=== PATIENT | male | born 1975 | race African-American/Black ===

== ENCOUNTER 2016-05-02 16:24 | Emergency (ER) | payer MEDICAID ==
[2016-05-02 17:01] VITALS: BP 121/74
--- NOTE | 2016-05-02 18:23 | ER Document Report ---
ED Medical Screen (RME) - General Stated Complaint: BODY ACHES/SORE THROAT Mode of Arrival: Ambulatory Information source: Patient Notes: 40-year-old male presents to the emergency department complaining of sore throat , body aches, and right ear pain over the last 3 days. Reports thinks symptoms may have started after he was bit by a mosquito on the left hand. Denies hand swelling, pain, or redness. I have greeted and performed a rapid initial assessment of this patient. A comprehensive ED assessment and evaluation of the patient, analysis of test results and completion of the medical decision making process will be conducted by additional ED providers. TRAVEL OUTSIDE OF THE [place] IN LAST 30 DAYS: No - Related Data Allergies/Adverse Reactions: No Known Allergies Allergy (Unverified 05/02/16 17:24) Past Medical History - Social History Chew tobacco use (# tins/day): No Frequency of alcohol use: None Drug Abuse: None Renal/ Medical History: Denies: Hx Peritoneal Dialysis Physical Exam - Vital signs Vitals: Temp Pulse Resp BP Pulse Ox 99.5 F 91 16 121/74 95 05/02/16 17:00 05/02/16 17:00 05/02/16 17:00 05/02/16 17:00 05/02/16 17:00 - General General appearance: Appears well, Alert In distress: None - Respiratory Respiratory status: No respiratory distress Course - Vital Signs Vital signs: Temp Pulse Resp BP Pulse Ox 99.5 F 91 16 121/74 95 05/02/16 17:00 05/02/16 17:00 05/02/16 17:00 05/02/16 17:00 05/02/16 17:00
[2016-05-02] MEDS ORDERED: OXYCODONE-ACETAMINOPHEN 5-325 MG TABLET PO ONE (18:36)
--- NOTE | 2016-05-02 18:37 | ER Document Report ---
HPI - HPI Patient complains to provider of: cold symptoms Onset: Other - 3 days Onset/Duration: Persistent Quality of pain: Achy Pain Level: 4 Context: Patient complains of sore throat, right ear pain, headache, body aches and chills for the past 3 days. Reports subjective fever at home. Associated Symptoms: Body/muscle aches, Earache, Fever - Subjective, Sore throat Exacerbated by: Denies Relieved by: Denies Similar symptoms previously: No Recently seen / treated by doctor: No - ROS ROS below otherwise negative: Yes Systems Reviewed and Negative: Yes All other systems reviewed and negative - CONSTITUTIONAL Constitutional: REPORTS: Fever, Chills - EENT EENT: REPORTS: Sore Throat, Congestion - NEURO Neurology: REPORTS: Headache - GASTROINTESTINAL Gastrointestinal: DENIES: Nausea, Patient vomiting, Diarrhea - MUSCULOSKELETAL Musculoskeletal: REPORTS: Extremity pain - Generalized body aches - DERM Skin Color: Normal Skin Problems: None Past Medical History - General Information source: Patient - Social History Smoking Status: Never Smoker Chew tobacco use (# tins/day): No Frequency of alcohol use: None Drug Abuse: None Occupation: none Lives with: Spouse/Significant other Family History: Reviewed & Not Pertinent Patient has suicidal ideation: No Patient has homicidal ideation: No - Medical History Medical History: Negative Renal/ Medical History: Denies: Hx Peritoneal Dialysis Surgical Hx: Negative Vertical Provider Document - CONSTITUTIONAL Agree With Documented VS: Yes Exam Limitations: No Limitations General Appearance: WD/WN, No Apparent Distress - INFECTION CONTROL TRAVEL OUTSIDE OF THE [place] IN LAST 30 DAYS: No - HEENT HEENT: Atraumatic, Normocephalic, Pharyngeal Tenderness, Pharyngeal Erythema. negative: Pharyngeal Exudate - NECK Neck: Normal Inspection, Supple. negative: Lymphadenopathy-Left, Lymphadenopathy-Right - RESPIRATORY Respiratory: Breath Sounds Normal, No Respiratory Distress, Chest Non-Tender O2 Sat by Pulse Oximetry: 95 - CARDIOVASCULAR Cardiovascular: Regular Rate, Regular Rhythm, No Murmur - BACK Back: Normal Inspection. negative: CVA Tenderness-Right, CVA Tenderness-Left - MUSCULOSKELETAL/EXTREMETIES Musculoskeletal/Extremeties: MAEW, FROM - NEURO Level of Consciousness: Awake, Alert, Appropriate Motor/Sensory: No Motor Deficit, No Sensory Deficit - DERM Integumentary: Warm, Dry, No Rash Course - Vital Signs Vital signs: Temp Pulse Resp BP Pulse Ox 99.5 F 91 16 121/74 95 05/02/16 17:00 05/02/16 17:00 05/02/16 17:00 05/02/16 17:00 05/02/16 17:00 - Laboratory Laboratory results interpreted by me: 05/02/16 19:59 Labs- Entire Visit 05/02/16 05/02/16 19:01 19:01 Influenza A (Rapid) NEGATIVE Influenza B (Rapid) POSITIVE Group A Strep Rapid NEGATIVE 05/02/16 21:05 Discharge - Discharge Clinical Impression: Influenza Condition: Stable Disposition: HOME, SELF-CARE Instructions: Influenza ([facility]), Oral Narcotic Medication ([facility]), Sore Throat ([facility] ) Additional Instructions: Return immediately for any new or worsening symptoms Followup with your primary care provider, call tomorrow to make a followup appointment Prescriptions: Hydrocodone/Acetaminophen [[place] 5-325 Tablet] 1 each PO Q4 PRN #15 tablet PRN Reason: Forms: Return to School
== END 2016-05-02 20:20 | disposition home or self-care (01) ==
LOC: ER 16:24
DX: J11.1 Influenza due to unidentified influenza virus with other respiratory manifestations (principal); H92.01 Otalgia, right ear; R51 Headache; R68.83 Chills (without fever); M79.1 Myalgia
CPT/HCPCS: 87070; 87804; 87880; 99283

== ENCOUNTER 2017-05-27 07:40 | Emergency (ER) | payer MEDICAID ==
[2017-05-27] MEDS ORDERED: ACETAMINOPHEN 325 MG TABLET PO ONE (07:53)
--- NOTE | 2017-05-27 09:21 | ER Document Report ---
HPI - HPI Patient complains to provider of: Sore throat Pain Level: 5 Context: Patient is a 41-year-old male who presents the emergency department the chief complaint of sore throat, headache, fevers and body aches that started this morning prior to arrival. Patient states that he did have a sick contact in his son who is being examined today for the same. Denies any runny nose, cough , difficulty breathing, shortness of breath chest pain nausea or vomiting. Did not take anything prior to arrival for symptoms. - CONSTITUTIONAL Constitutional: REPORTS: Fever, Chills - EENT EENT: REPORTS: Sore Throat Past Medical History - Social History Smoking Status: Never Smoker Frequency of alcohol use: None Drug Abuse: None Family History: Reviewed & Not Pertinent Patient has suicidal ideation: No Patient has homicidal ideation: No Renal/ Medical History: Denies: Hx Peritoneal Dialysis Past Surgical History: Reports: Hx Oral Surgery Vertical Provider Document - CONSTITUTIONAL Agree With Documented VS: Yes Notes: PHYSICAL EXAM GENERAL: Alert, interacts well. HEAD: Normocephalic, atraumatic. EYES: Pupils equal, round, and reactive to light. Extraocular movements intact. ENT: Tympanic membrane intact without any evidence of bulging, effusion. Oral mucosa moist, tongue midline. No evidence of peritonsillar, retropharyngeal abscess. Tonsillar exudates with anterior lymphadenopathy. Otherwise airway patent. NECK: Full range of motion. Supple. Trachea midline. LUNGS: Clear to auscultation bilaterally, no wheezes, rales, or rhonchi. No respiratory distress. HEART: Regular rate and rhythm. No murmurs, gallops, or rubs. ABDOMEN: Soft, nondistended, nontender. No guarding, rebound, or rigidity.. Bowel sounds present in all 4 quadrants. EXTREMITIES: Moves all 4 extremities spontaneously. No edema, radial and dorsalis pedis pulses 2/4 bilaterally. No cyanosis. NEUROLOGICAL: Alert and oriented x4. Normal speech. PSYCH: Normal affect, normal mood. SKIN: Warm, dry, normal turgor. No rashes or lesions noted. - INFECTION CONTROL TRAVEL OUTSIDE OF THE [place] IN LAST 30 DAYS: No - RESPIRATORY O2 Sat by Pulse Oximetry: 96 Course - Re-evaluation Re-evalutation: 05/27/17 10:20 Presentation of one day of sore throat with positive sick contact in an otherwise well-appearing patient. Rapid strep is positive. History and exam are not consistent with a retropharyngeal abscess or peritonsillar abscess. Airway is patent. No difficulty handling oral secretions. Vitals within normal limits. Patient has been treated with an IM dose of penicillin and decadron. At this time will discharge with return precautions and follow-up recommendations. Verbal discharge instructions given a the bedside and opportunity for questions given. Medication warnings reviewed. Patient is in agreement with this plan and has verbalized understanding of return /18 Precautions and the need for primary care follow-up in the next week. - Vital Signs Vital signs: Temp Pulse Resp BP Pulse Ox 101.7 F H 103 H 24 H 116/78 96 05/27/17 07:51 05/27/17 07:51 05/27/17 07:51 05/27/17 07:51 05/27/17 07:51 Discharge - Discharge Clinical Impression: Strep pharyngitis Condition: Good Disposition: HOME, SELF-CARE Instructions: Acetaminophen Additional Instructions: You have been diagnosed with strep throat based on a positive strep test. You have been treated with a dose of penicillin here in the emergency department and do not need any additional antibiotics. You have also been given a dose of steroids to help with your throat discomfort. Please continue to take ibuprofen 600 mg every 6 hours or Tylenol 1000 mg every 6 hours as needed for throat discomfort. You can also gargle with salt water. Continue to drink plenty of fluids. Follow-up with your primary care doctor in the next several days. Return if you become unable to swallow, have difficulty breathing, pass out, have persistent vomiting that prevents you from being able to tolerate fluids, or have any other symptoms that are concerning to you.
[2017-05-27] MEDS ORDERED: PENICILLIN G BENZATHINE 1.2 MILLION UNIT/2 ML DISP.SYRIN IM ONE (10:20)
[2017-05-27] MEDS ORDERED: DEXAMETHASONE SOD PHOS INJ 10 MG/1 ML VIAL IM ONE (10:20)
[2017-05-27 10:39] VITALS: BP 115/67
== END 2017-05-27 10:46 | disposition home or self-care (01) ==
LOC: ER 07:40
DX: J02.0 Streptococcal pharyngitis (principal); R51 Headache; R50.9 Fever, unspecified; M79.1 Myalgia
CPT/HCPCS: 99283; 96372; 87880; J3490; J0561; J1100

== ENCOUNTER 2018-04-14 11:31 | Emergency (ER) | payer MEDICAID ==
--- NOTE | 2018-04-14 12:28 | ER Document Report ---
ED Extremity Problem, Lower - General Chief Complaint: Foot Pain Stated Complaint: LEFT FOOT PAIN, SWELLING Time Seen by Provider: 04/14/18 12:16 Notes: 42-year-old male presents to the emergency department complaining of left foot pain. States he was running and stepped on 1 of the weight benches legs. Complains of pain on the side of his foot. He denies falling or hitting his head or have any loss of consciousness. States he did this earlier today describes pain as moderate aching worse when he bears weight. He denies any bleeding or open wounds. Denies any extremity numbness tingling or weakness. Denies any chest pain or shortness of breath again there is no loss of consciousness no fall no syncope. TRAVEL OUTSIDE OF THE [place] IN LAST 30 DAYS: No - Related Data Allergies/Adverse Reactions: No Known Allergies Allergy (Verified 04/14/18 11:57) Past Medical History - Social History Smoking Status: Never Smoker Chew tobacco use (# tins/day): No Frequency of alcohol use: None Drug Abuse: None Family History: Reviewed & Not Pertinent Patient has suicidal ideation: No Patient has homicidal ideation: No Renal/ Medical History: Denies: Hx Peritoneal Dialysis Past Surgical History: Reports: Hx Oral Surgery Review of Systems - Review of Systems Constitutional: denies: Chills, Fever Cardiovascular: denies: Chest pain Musculoskeletal: Joint pain. denies: Deformity Neurological/Psychological: denies: Lost consciousness, Headaches -: Yes All other systems reviewed and negative Physical Exam - Vital signs Vitals: Temp Pulse Resp BP Pulse Ox 99.2 F 79 16 117/78 96 04/14/18 11:38 04/14/18 11:38 04/14/18 11:38 04/14/18 11:38 04/14/18 11:38 - Notes Notes: GENERAL_APPEARANCE: well_nourished, alert, cooperative VITALS: reviewed, see vital signs table. HEAD: no_swelling\tenderness on the head. EYES: PERRL, EOMI, conjunctiva_clear. NOSE: no_nasal_discharge. MOUTH: (-)decreased moisture. NECK: supple, no_neck_tenderness, (-)thyromegaly. BACK: no_back_tenderness. EXTREMITIES: Left foot there is some tenderness on the lateral surface near the base of the fifth metatarsal. No obvious open wounds no deformity SKIN: warm, dry, good_color, no_rash. MENTAL_STATUS: speech_clear, oriented_X_3, normal_affect, responds_appropriately to questions. Course - Re-evaluation Re-evalutation: 04/14/18 12:28 42-year-old male presents to the ER after injuring his foot. I see no obvious fractures on x-ray. Patient was placed in a cast shoe and crutches. He will be placed on diclofenac for pain and inflammation I spoke with him about occult fractures and following up with Orth [facility] in a week. 04/14/18 13:02 No fractures are noted - Vital Signs Vital signs: Temp Pulse Resp BP Pulse Ox 99.2 F 79 16 117/78 96 04/14/18 11:38 04/14/18 11:38 04/14/18 11:38 04/14/18 11:38 04/14/18 11:38 - Diagnostic Test Radiology reviewed: Reports reviewed Radiology results interpreted by me: 04/14/18 13:02 Foot X-Ray 04/14/18 11:57 IMPRESSION: NEGATIVE STUDY OF THE LEFT FOOT. NO RADIOGRAPHIC EVIDENCE OF ACUTE INJURY. Discharge - Discharge Clinical Impression: Foot contusion Qualifiers: Encounter type: initial encounter Laterality: left Qualified Code(s): S90.32XA - Contusion of left foot, initial encounter Condition: Good Disposition: HOME, SELF-CARE Instructions: Contusion ([facility]) Prescriptions: Diclofenac Sodium [Voltaren] 75 mg PO BID PRN #20 tablet.dr MOSS Reason: Pain Scale Of 5
--- NOTE | 2018-04-14 12:49 | RADIOLOGY REPORT (SQ) ---
EXAM DESCRIPTION: FOOT LEFT COMPLETE COMPLETED DATE/TIME: 04/14/2018 12:40 pm REASON FOR STUDY: fall COMPARISON: None. NUMBER OF VIEWS: Three views. TECHNIQUE: AP, lateral and oblique radiographic images acquired of the left foot. LIMITATIONS: None. FINDINGS: MINERALIZATION: Normal. BONES: No acute fracture or dislocation. No worrisome bone lesions. JOINTS: No effusions. SOFT TISSUES: No soft tissue swelling. No foreign body. OTHER: No other significant finding. IMPRESSION: NEGATIVE STUDY OF THE LEFT FOOT. NO RADIOGRAPHIC EVIDENCE OF ACUTE INJURY. TECHNICAL DOCUMENTATION: JOB ID: [id number] [employer]- All Rights Reserved Reading location - IP/workstation name: [email or web address]
[2018-04-14 13:25] VITALS: BP 116/79
== END 2018-04-14 13:26 | disposition home or self-care (01) ==
LOC: ER 11:31
DX: S90.32XA Contusion of left foot, initial encounter (principal); W21.89XA Striking against or struck by other sports equipment, initial encounter; Y93.02 Activity, running
CPT/HCPCS: 99283

== ENCOUNTER 2020-02-13 10:49 | Emergency (ER) | payer SELFPAY ==
--- NOTE | 2020-02-13 11:29 | ER Document Report ---
ED Medical Screen (RME) - General Chief Complaint: Chest Pain Stated Complaint: CHEST PAIN Time Seen by Provider: 02/13/20 11:25 Mode of Arrival: Ambulatory Information source: Patient Notes: Patient presents complaining of chest pain to the left side of the chest that radiates to the left upper extremity for the past 5 days. Patient also complains of bilateral lower extremity swelling for the past 7 months. Patient complains of right sided abdominal discomfort for the past 6 months. Patient denies any chronic medical problems or previous surgeries. I have greeted and performed a rapid initial assessment of this patient. A comprehensive ED assessment and evaluation of the patient, analysis of test results and completion of the medical decision making process will be conducted by additional ED providers. TRAVEL OUTSIDE OF THE [place] IN LAST 30 DAYS: No - Related Data Allergies/Adverse Reactions: No Known Allergies Allergy (Verified 04/14/18 11:57) Past Medical History - Social History Frequency of alcohol use: Occasional Drug Abuse: Marijuana Renal/ Medical History: Denies: Hx Peritoneal Dialysis Past Surgical History: Reports: Hx Oral Surgery Physical Exam - Vital signs Vitals: Temp Pulse Resp BP Pulse Ox 98.9 F 80 16 139/79 H 99 02/13/20 10:57 02/13/20 10:57 02/13/20 10:57 02/13/20 10:57 02/13/20 10:57 - Respiratory Respiratory status: No respiratory distress Chest status: Tender - Upper anterior chest wall Breath sounds: Normal Chest palpation: Tender Course - Vital Signs Vital signs: Temp Pulse Resp BP Pulse Ox 98.9 F 80 16 139/79 H 99 02/13/20 10:57 02/13/20 10:57 02/13/20 10:57 02/13/20 10:57 02/13/20 10:57
[2020-02-13 11:52] LABS: ABSOLUTE MONOCYTES (AUTO) 0.5 10^3/uL (0.1-1.4); ABSOLUTE NEUT (AUTO) 1.7 10^3/uL (1.7-8.2); BASOPHILS % (AUTO) 0.7 % (0-2); EOSINOPHILS % (AUTO) 0.5 % (0-6); HEMATOCRIT 46.6 % (37.9-51.0); LYMPHOCYTES % (AUTO) 30.6 % (13-45); MEAN CORPUSCULAR HEMOGLOBIN 30.6 pg (27.0-33.4); MEAN CORPUSCULAR HGB CONC 34.4 g/dL (32.0-36.0); MEAN CORPUSCULAR VOLUME 89 fl (80-97); MONOCYTES % (AUTO) 16.2 % (3-13); PLATELET COUNT 155 10^3/uL (150-450); RED BLOOD COUNT 5.24 10^6/uL (4.35-5.55); RED CELL DISTRIBUTION WIDTH 13.6 % (11.5-14.0); TOTAL CELLS COUNTED % (AUTO) 100 %; WHITE BLOOD COUNT 3.3 10^3/uL (4.0-10.5)
[2020-02-13 12:04] LABS: APPEARANCE,URINE CLEAR; BILIRUBIN,URINE NEGATIVE (NEGATIVE); COLOR,URINE YELLOW; GLUCOSE, URINE NEGATIVE (NEGATIVE); KETONES,URINE TRACE mg/dL (NEGATIVE); LEUKOCYTE ESTERASE,URINE TRACE (NEGATIVE); NITRITE,URINE NEGATIVE (NEGATIVE); PROTEIN,URINE NEGATIVE (NEGATIVE); URINE SPECIFIC GRAVITY 1.028
[2020-02-13 12:06] LABS: ALBUMIN 4.7 g/dL (3.5-5.0); ALKALINE PHOSPHATASE 74 U/L (38-126); ANION GAP 7 (5-19); ASPARTATE AMINO TRANSFERASE 56 U/L (17-59); BILIRUBIN,TOTAL 0.8 mg/dL (0.2-1.3); BLOOD UREA NITROGEN 11 mg/dL (7-20); CALCIUM 9.8 mg/dL (8.4-10.2); CARBON DIOXIDE 31 mmol/L (22-30); CHLORIDE 101 mmol/L (98-107); GLUCOSE 119 mg/dL (75-110); POTASSIUM 4.2 mmol/L (3.6-5.0); TOTAL PROTEIN 8.6 g/dL (6.3-8.2)
--- NOTE | 2020-02-13 12:08 | RADIOLOGY REPORT (SQ) ---
EXAM DESCRIPTION: ACUTE ABDOMEN SERIES IMAGES COMPLETED DATE/TIME: 02/13/2020 11:51 am REASON FOR STUDY: cp, r side abd pain COMPARISON: None. NUMBER OF VIEWS: Three views. TECHNIQUE: Frontal chest, supine abdomen and upright/decubitus abdomen radiographic images acquired. LIMITATIONS: None. FINDINGS: CHEST: Lungs clear of infiltrates. FREE AIR: None. No abnormal gas collections. BOWEL GAS PATTERN: Nonobstructive pattern. No dilated loops or air fluid levels. CALCIFICATIONS: No suspicious calcifications. HARDWARE: None in the abdomen. SOFT TISSUES: No gross mass or suggestion of organomegaly. BONES: No acute fracture. No worrisome bone lesions. OTHER: No other significant finding. IMPRESSION: NO RADIOGRAPHIC EVIDENCE FOR ACUTE ABDOMINAL DISEASE. TECHNICAL DOCUMENTATION: JOB ID: [id number] [employer]- All Rights Reserved Reading location - IP/workstation name: [email or web address]
--- NOTE | 2020-02-13 14:06 | EKG REPORT ---
SEVERITY:- NORMAL ECG - SINUS RHYTHM : Confirmed by: Bhupendra Ambrocio MD 13-Feb-2020 14:06:04
--- NOTE | 2020-02-13 15:41 | ER Document Report ---
ED General - General Chief Complaint: Chest Pain Stated Complaint: CHEST PAIN Time Seen by Provider: 02/13/20 11:25 Mode of Arrival: Ambulatory TRAVEL OUTSIDE OF THE [place] IN LAST 30 DAYS: No - HPI Notes: Patient is a 44-year-old male who presents emergency department for evaluation of left-sided chest pain for the last 5 to 6 days, right-sided abdominal pain for 6 months, lower extremity edema and paresthesias of the anterior legs for 7 months. Patient states he cannot remember exactly what happened with his chest pain. It started in the left side. It is been constant for the last several days. Is worsened with movement. He denies any associated nausea, shortness of breath, diaphoresis, near syncope. He states he has had intermittent edema in his lower extremities for the last several months. He states that it seems to be a little bit better today, but on occasion to get some pressure with it. He denies any sharp pain. He has no prolonged immobilization. No history of DVT or PE. No recent surgeries. No family history of DVT or PE. No personal history of cancer. Patient also states has had right upper quadrant abdominal pain every day for the last several months. He denies any fevers or chills. No nausea or vomiting in regards to this. Does not seem to be affected in any way by food. He is having normal bowel movements. Normal urination. Patient also states he has some lower back pain, and paresthesias in the front of his legs. It seems to get on his entire legs. Ask intermittently. He really cannot give me any aggravating or alleviating factors. - Related Data Allergies/Adverse Reactions: No Known Allergies Allergy (Verified 04/14/18 11:57) Past Medical History - General Information source: Patient - Social History Smoking Status: Former Smoker Frequency of alcohol use: Occasional Drug Abuse: Marijuana Family History: Reviewed & Not Pertinent, Hypertension, Thyroid Disfunction Renal/ Medical History: Denies: Hx Peritoneal Dialysis Past Surgical History: Reports: Hx Oral Surgery Review of Systems - Review of Systems Constitutional: No symptoms reported EENT: No symptoms reported Cardiovascular: See HPI Respiratory: No symptoms reported Gastrointestinal: See HPI Genitourinary: No symptoms reported Musculoskeletal: See HPI Skin: No symptoms reported Neurological/Psychological: No symptoms reported -: Yes All other systems reviewed and negative Physical Exam - Vital signs Vitals: Temp Pulse Resp BP Pulse Ox 98.9 F 80 16 139/79 H 99 02/13/20 10:57 02/13/20 10:57 02/13/20 10:57 02/13/20 10:57 02/13/20 10:57 - Notes Notes: Vital signs reviewed, please refer to chart. Head is normocephalic, atraumatic. Pupils equal round, reactive to light. Neck is supple without meningismus. Heart is regular rate and rhythm. Lungs are clear to auscultation bilaterally. Chest wall excursion is equal bilaterally. Inspection of the chest wall yields no obvious abnormality. He is markedly tender to palpation over the insertion of the pectoralis major muscle. Active range of motion of the left upper extremity yields significant pain. Abdomen is soft, mildly and diffusely tender in the right side of the abdomen without rebound or guarding, normoactive bowel sounds throughout. Extremities without cyanosis, clubbing. Posterior calves are nontender. Trace pitting edema noted to bilateral ankles. Peripheral pulses are equal. Skin is warm and dry. Patient is awake, alert, neurological exam is nonfocal. Course - Re-evaluation Re-evalutation: 02/13/20 15:44 Patient presents to the emergency department for evaluation of multiple complaints. His chest pain has been several days present. It seems to be musculoskeletal. Is reproducible. His EKG and cardiac enzymes are unremarkable. In regards to his abdominal pain, he does have some mild and diffuse tenderness, but his LFTs are unremarkable. His lipase is normal. Abdominal series failed to reveal any significant abnormality. In regards to his edema he has no posterior calf tenderness. He is not showing any overt signs of congestive heart failure. In regards to his paresthesias, this may be related to his low back pain, but I do believe conservative treatment is appropriate at this time. I explained all these findings to the patient. I will treat him with anti-inflammatories and muscle relaxers, which will hopefully help him with his low back pain as well as his paresthesias, chest wall pain, and shoulder pain. He is amenable to this plan. Follow-up with primary care was stressed to this patient, and he voiced understanding. Otherwise he is to return to the emergency department for worsening or new concerning symptoms of any sort. - Vital Signs Vital signs: Temp Pulse Resp BP Pulse Ox 98.9 F 80 16 139/79 H 99 02/13/20 10:57 02/13/20 10:57 02/13/20 10:57 02/13/20 10:57 02/13/20 10:57 - Laboratory Result Diagrams: 02/13/20 11:32 02/13/20 11:32 Laboratory results interpreted by me: 02/13/20 02/13/20 02/13/20 11:32 11:32 11:32 WBC 3.3 L [place] % (Auto) 16.2 H Carbon Dioxide 31 H Glucose 119 H Total Protein 8.6 H Urine Ketones TRACE H Urine Urobilinogen 4.0 H Ur Leukocyte Esterase TRACE H Urine Ascorbic Acid 40 H - Diagnostic Test Radiology reviewed: Reports reviewed Radiology results interpreted by me: 02/13/20 15:45 Acute Abdomen Series 02/13/20 11:28 IMPRESSION: NO RADIOGRAPHIC EVIDENCE FOR ACUTE ABDOMINAL DISEASE. - EKG Interpretation by Me Additional EKG results interpreted by me: 02/13/20 15:46 Sinus mechanism. Normal axis and intervals. No acute ST changes concerning for ischemia or infarction. Discharge - Discharge Clinical Impression: Chest wall pain, Right sided abdominal pain, Paresthesia of lower extremity, Dependent edema Condition: Stable Disposition: HOME, SELF-CARE Instructions: Abdominal Pain ([facility]), Anti-Inflammatory Medication ([facility]), Chest Wall Pain ([facility]) Additional Instructions: Please take anti-inflammatories and muscle relaxers as prescribed. Moist heat to the painful area. Follow-up with primary care in 1 to 2 weeks. Return to the emergency department if you develop worsening or new concerning symptoms of any sort. Prescriptions: Naproxen [Naprosyn] 500 mg PO BID #20 tablet Methocarbamol [Robaxin-750] 750 mg PO TID PRN #21 tablet PRN Reason:
[2020-02-13 15:51] VITALS: BP 144/97
== END 2020-02-13 15:52 | disposition home or self-care (01) ==
LOC: ER 10:49
DX: R07.89 Other chest pain (principal); R60.0 Localized edema; R20.2 Paresthesia of skin; R10.11 Right upper quadrant pain; M54.5 Low back pain; F12.10 Cannabis abuse, uncomplicated; Z87.891 Personal history of nicotine dependence
CPT/HCPCS: 36415; 74022; 80053; 81001; 83690; 83735; 84484; 85025; 93005; 93010; 99285